=== PATIENT | male | born 1965 | race Hispanic/Latino ===

== ENCOUNTER 2019-02-19 06:30 | Outpatient (CLI) | payer OTHER ==
[2019-02-19 07:21] LABS: Blood Urea Nitrogen 19 mg/dL (9-20)
--- NOTE | 2019-02-19 08:29 | Cat Scan Report ---
CT ABDOMEN PELVIS WITH CONTRAST: HISTORY: Left kidney mass. COMPARISON: Renal ultrasound dated 01/31/19. TECHNIQUE: Helical CT in 1.25mm intervals following IV contrast. Sagittal and coronal reconstructions. FINDINGS: Lung bases: The visualized lung bases are adequately aerated. There is mild cardiomegaly. Liver: Normal. Biliary system: Normal. Pancreas: Normal. Spleen: Normal. Kidneys/ureters/bladder: The kidneys are normal size, contour and position. There is normal enhancement of the renal parenchyma and excretion of contrast bilaterally. The previously described questionable left renal mass on ultrasound is not demonstrated on CT with contrast. The renal collecting systems and bladder are unremarkable. Prostate gland is normal size. Adrenal glands: Normal. Aorta: Normal. Intestines: There are scattered diverticula in the descending and sigmoid colon. No evidence for obstruction, focal inflammation or obvious mass. Appendix: Normal. Ascites: None. Adenopathy: None. Musculoskeletal: Intact. Previous lumbar fusion changes at L5-S1 are noted. IMPRESSION: Normal kidneys. No evidence for left renal mass on CT with contrast. Mild diverticulosis in the distal colon. Mild cardiomegaly.
== END 2019-02-19 06:31 | disposition home or self-care (01) ==
LOC: CT 06:30
PROVIDERS: ATTEND Internal Medicine
DX: K57.30 Diverticulosis of large intestine without perforation or abscess without bleeding (principal); I51.7 Cardiomegaly; M43.27 Fusion of spine, lumbosacral region; E78.00 Pure hypercholesterolemia, unspecified; K21.9 Gastro-esophageal reflux disease without esophagitis
CPT/HCPCS: 36415; 74177; 82565; 84520; Q9967

== ENCOUNTER 2019-05-22 06:15 | Day surgery (SDC) | payer OTHER ==
[2019-05-22] MEDS ORDERED: NACL 0.9% 1000 ML 1,000 ML IV SCH (07:00)
[2019-05-22] MEDS ORDERED: WATER FOR IRRIG STERILE IR ONE (07:23)
[2019-05-22] MEDS ORDERED: WATER FOR IRRIG STERILE ONE (07:23)
[2019-05-22] MEDS ORDERED: XYLOCAINE MPF 2% ONE (07:30)
--- NOTE | 2019-05-22 07:31 | Anesthesia Consultation ---
Anesthesia Consult and Med Hx Date of service: 05/22/19 - Airway Anesthetic Teeth Evaluation: Good ROM Head & Neck: Adequate Mental/Hyoid Distance: Adequate Mallampati Class: Class II Intubation Access Assessment: Good - Pulmonary Exam CTA: Yes - Cardiac Exam Cardiac Exam: RRR - Pre-Operative Health Status ASA Pre-Surgery Classification: ASA3 Proposed Anesthetic Plan: TIVA - Pre-Anesthesia Comment Pre-Anesthesia Comments: mi 5 years ago stents placed. follows up with tin plater regularly. denies any chest pain or shortness of breath. takes coreg and amlodopine daily - Pulmonary Hx Smoking: No (H/O smoking. Stopped >10 years ago) Hx Respiratory Symptoms: No SOB: No - Cardiovascular System Hx Hypertension: Yes Hx Coronary Artery Disease: Yes Hx Heart Attack/AMI: Yes Hx Percutaneous Transluminal Coronary Angioplasty (PTCA): Yes (S/P stenting in 2012) - Central Nervous System Hx Back Pain: Yes (CERVICAL-fusion, LUMBAR-fusion) Hx Psychiatric Problems: Yes - Gastrointestinal Hx Gastroesophageal Reflux Disease: No (Controlled on oral antacids. currently asymptomatic) - Endocrine Hx Renal Disease: No Hx Liver Disease: No - Other Systems Hx Alcohol Use: Yes (occassionally. every few months) Hx Substance Use: No Hx Cancer: No Hx Obesity: No
--- NOTE | 2019-05-22 07:32 | Anesthesia Day of Surgery ---
Anesthesia Day of Surgery - Day of Surgery Patient H&P Reviewed: Yes Patient is NPO: Yes Beta Blockers: Yes
[2019-05-22] MEDS ORDERED: DIPRIVAN 10 MG/ML IV ONE ×3 (07:38)
--- NOTE | 2019-05-22 08:34 | Operative Report ---
Operative Report Operative Report: DOS: 05/22/19 SURGEON: Ernesto West MD COLONOSCOPY REPORT PREOPERATIVE AND POSTOPERATIVE DIAGNOSIS: screening colonoscopy DESCRIPTION OF PROCEDURE: The colonoscope was passed to the terminal ileum as identified by the ileal tissue. Scope was carefully withdrawn. Retroflexion was performed in the rectum. At the end of procedure, the scope was cleaned using normal technique. Vital signs monitored continuously throughout. SEDATION: Provided by [facility]. Quality of the prep was good COMPLICATIONS: None. ESTIMATED BLOOD LOSS: none FINDINGS: * Normal terminal ileum * Scattered moderate diverticulosis throughout the colon from the sigmoid to the proximal ascending colon * Small internal hemorrhoids * Non thrombosed external hemorrhoids * Remainder of the exam was normal RECOMMENDATIONS: * Repeat screening colonoscopy in 10 years
[2019-05-22 09:22] VITALS: BP 111/76
== END 2019-05-22 06:16 | disposition home or self-care (01) ==
LOC: GIO 06:15
PROVIDERS: ATTEND Student in an Organized Health Care Education/Training Program
DX: Z12.11 Encounter for screening for malignant neoplasm of colon (principal); K57.30 Diverticulosis of large intestine without perforation or abscess without bleeding; K64.8 Other hemorrhoids; E78.00 Pure hypercholesterolemia, unspecified; I10 Essential (primary) hypertension; K21.9 Gastro-esophageal reflux disease without esophagitis; M19.90 Unspecified osteoarthritis, unspecified site; F32.9 Major depressive disorder, single episode, unspecified; G43.909 Migraine, unspecified, not intractable, without status migrainosus; I25.10 Atherosclerotic heart disease of native coronary artery without angina pectoris; Z79.899 Other long term (current) drug therapy; Z79.82 Long term (current) use of aspirin; Z87.891 Personal history of nicotine dependence; Z95.5 Presence of coronary angioplasty implant and graft; Z72.89 Other problems related to lifestyle; Z98.890 Other specified postprocedural states
CPT/HCPCS: 45378; J2704; J7030